=== PATIENT | male | born 1965 ===

== ENCOUNTER 2024-04-13 08:57 | Outpatient (AMB) | payer OTHER, SELFPAY ==
--- NOTE | 2024-04-13 09:04 | MHC.OFFVIS ---
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 State this is a 2nd opinion, he was seen by Dr Baker who operated on his right hand-CTR 12/08/2023. States he also had a right elbow surgery that is related to injury. Patient reports the tingling sensation has returned in his whole hand as well as intermittent spasms and tenderness in his palm. States his symptoms are keeping him out of work. 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 He does at home exercises. No brace use as he was instructed he did not need. 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 S/P carpal tunnel release, DOS: 12/08/[address] Baker at [facility]. He complains of painful spasms and hypersensitivity in his right hand, along with a shocking sensation. He also complains of pain in his knuckles all the time . He says he had constant tingling in his fingers prior to his surgery. Scanned reports say his sensation improved and was normal following surgery. He says he has difficulty with heavy gripping activities. He says he has been out of work since his carpal tunnel syndrome, and says he needs to have 100% use of his hand before he goes back to work. He finds it bothersome as he has spoken to other people who have had complete resolution of their symptoms following surgery. He denies doing any OT hand therapy. He says he has been trying to use his hand at home and doing some strengthening activities, such a using a squeeze ball, at home. He denies any falls or known injury. 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 There is currently no information on file concerning his worker's comp injury from 01/21/2022. he says this was for his elbow, and resolved following surgery. This is not his complaint today. 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 Review of Systems Const All systems reviewed & are unremarkable except as noted in HPI and below Physical Exam Vital Signs: BMI result Body Mass Index 22.3 Const General: cooperative, healthy appearing and no acute distress Orientation/consciousness: patient oriented x3 HEENT Head: Yes normocephalic and Yes atraumatic Eyes EOM: EOMs intact bilaterally Resp Effort & Inspection: normal respiratory effort and able to speak in complete sentences Cardio Jugular venous distension: no JVD Skin General skin exam: turgor normal Rashes: no rashes Neuro General: patient oriented x3 Extrem Other: Evaluation of Right Upper Extremity: The patient is alert, oriented, and in no acute distress His surgical incision for his carpal tunnel releases well healed with no evidence of infection. Neuro: Median, Ulnar, Radial nerves motor and sensory grossly intact with some tingling present in the median nerve distribution. No thenar or intrinsic wasting. Good finger cross and good APB muscle belly firing Vascular: Cap refill brisk ROM: He can make a fist and extend all of his digits. No locking or catching Skin: No lacerations or abrasions. General: No Ecchymosis. No Erythema or evidence of infection. He was not particularly tender over the carpal tunnel incision site. He did have some mild tenderness over the hook of the hamate Radiographs: 3 views of the right hand were taken and viewed by me today in clinic. They show no fractures or dislocations. In looking at the hook of the hamate in particular on the oblique view I do not see any evidence of fracture. With regards to arthritic changes he has got perhaps some early arthritic changes at the MCP joints with some mild peaking at the bases of the proximal phalanxes. Well-preserved joint spaces at this time. Nerve Conduction Study: Right-side only 1. Mild right median neuropathy consistent with carpal tunnel syndrome Garth Ennis M.D 10/11/2023 [facility] Neurology Please see the scanned report for additional details Psych Appearance: grossly normal Affect: normal affect Attitude: cooperative Assessment & Plan Assessment & Plan (1) History of carpal tunnel surgery of right wrist: Code(s): Z98.890 - Other specified postprocedural states Category: Surgical (2) Right hand pain: Code(s): M79.641 - Pain in right hand Category: Medical Plan Assessment & Plan: 1. Right hand pain Dorsal aspect of MCP and PIP joints when he brings him to a fist Likely secondary to osteoarthritis or possible disuse 2. Right carpal tunnel syndrome, S/P release DOS: 12/08/[address] Baker at [facility] Pre-operatively with dense numbness Normal sensation following surgery, per scanned reports from [facility] Patient reports tingling in the median nerve distribution with some but incomplete improvement since surgery. All in all I think he is healing well following his surgery. I educated him about these conditions, & the post-operative course I recommend he continue to follow with Dr. Baker at [facility]. I educated him at length about carpal tunnel syndrome, and about the differing results between patients who have intermittent symptoms and people are dense numbness following operative treatment. I also explained that surgery was important to maintain muscle function and to give him the opportunity for possible improvement in sensation.. It is a good indication that he has had some improvement in his sensation. He expressed understanding I think the OT hand therapy recommended by Dr. Baker is a good idea to work on normalizing function, and he should proceed with the repeat NCS ordered by Dr. Baker I explained that I would not be weighing in on his return to work issues He can follow up prn Please note that greater than 45 minutes was spent with this patient going over the history, evaluating the patient and radiographs, formulating possible treatment options, discussing them with the patient, and documenting the visit. Scribed for Shaina Francis MD by Jimbo Matias, medical records assistant, on 04/13/24 at 9:35 AM, EST. Coding Level of Care Code New Pt Level 4 (48887) Diagnoses History of carpal tunnel surgery of right wrist Z98.890 Right hand pain M79.641
[2024-04-13 09:22] VITALS: BMI 22.3
== END 2024-04-13 10:08 | disposition home or self-care (01) ==
PROVIDERS: Visit Provider Orthopaedic Surgery
DX: M79.641 Pain in right hand (principal)
CPT/HCPCS: 99204

== ENCOUNTER → 2024-04-13 09:12 | Outpatient (BNV) | payer OTHER, SELFPAY | PROVIDERS: Visit Provider Radiology Diagnostic Radiology | DX: M79.642 Pain in left hand (principal) | CPT/HCPCS: 73130 ==

== ENCOUNTER 2024-04-13 11:08 | Outpatient (REF) | payer OTHER, SELFPAY ==
--- NOTE | ~2024-04-13 | XR_ITS ---
EXAMINATION: XR HAND, RIGHT CLINICAL INFORMATION: M79.642 - Pain in right hand COMPARISON: None available. TECHNIQUE: PA, lateral, and oblique views of the right hand. FINDINGS: Carpal bones are intact. Metacarpal bones are intact. Phalanges are intact. No gross malalignment. No lytic or blastic lesions. No subcutaneous emphysema. Preservation of the joint spaces without subchondral cyst formation. XR/XR hand RT min 3V IMPRESSION: Normal right hand. Electronically signed by: Naseem Sears MD 04/13/2024 10:39 AM [facility]
== END 2024-04-13 11:09 | disposition home or self-care (01) ==
LOC: HO.HOSX 11:08
PROVIDERS: Visit Provider Orthopaedic Surgery
DX: M79.641 Pain in right hand (principal); Z98.890 Other specified postprocedural states
CPT/HCPCS: 73130; 99202